=== PATIENT | male | born 1970 | race Caucasian/White ===

== ENCOUNTER 2022-11-04 16:03 | Emergency (ER) | payer OTHER ==
[~2022-11-04] VITALS: Ht 175.3 cm; Wt 86.2 kg
[2022-11-04 16:05] VITALS: BP_SYST 185
--- NOTE | 2022-11-04 16:10 | NUR ---
Patient triaged and placed in waiting room. VSS and patient appears in no acute distress at this time. Accompanied by , awaiting available bed, and MD notified of need for MSE.
--- NOTE | 2022-11-04 16:45 | NUR ---
CALLED FOR BED PLACEMENT AND UNABLE TO LOCATE PT IN WAITING ROOM
--- NOTE | 2022-11-04 17:10 | NUR ---
UNABLE TO LOCATE PT IN WAITING ROOM
--- NOTE | 2022-11-04 17:10 | NUR ---
Note undone in EDM - 11/04/22 at 1800 by SEBASTIAN Patient triaged and placed in waiting room. VSS and patient appears in no acute distress at this time. Accompanied by , awaiting available bed, and MD notified of need for MSE.
--- NOTE | 2022-11-04 17:42 | NUR ---
CALLED FOR BED PLACEMENT NO ANSWER
--- NOTE | 2022-11-04 17:45 | NUR ---
LEFT WITHOUT BEING SEEN
--- NOTE | 2022-11-04 18:00 | NUR ---
CALLED FOR BED PLACEMENT NO ANSWER
--- NOTE | 2022-11-04 18:15 | NUR ---
PATIENT CALLED FOR BED PLACEMENT. PATIENT LEFT WITHOUT BEING SEEN
== END 2022-11-04 18:15 | disposition left against medical advice (07) ==
LOC: SED 16:03
DX: I10 Essential (primary) hypertension (principal); Z53.21 Procedure and treatment not carried out due to patient leaving prior to being seen by health care provider
CPT/HCPCS: 99281